=== PATIENT | female | born 1990 | race African-American/Black ===

== ENCOUNTER 2022-05-28 08:39 | Day surgery (SDC) | payer OTHER ==
[2022-05-26 14:41] VITALS: BMI 32.3
[2022-05-28] MEDS ORDERED: ROPIVACAINE HCL 0.5% 30ML VIAL ONE (10:19)
[2022-05-28] MEDS ORDERED: MIDAZOLAM HCL 2 MG/2 ML SINGLE DOSE VIAL ONE (10:19)
[2022-05-28] MEDS ORDERED: DEXAMETHASONE SOD PHOSPHATE 10 MG/1 ML VIAL ONE (10:19)
[2022-05-28] MEDS ORDERED: SODIUM CHLORIDE 0.9% P/F 10 ML VIAL IJ ONE (10:20)
[2022-05-28] MEDS ORDERED: PROPOFOL 40 ML ONE ×2 (10:34→13:12)
[2022-05-28] MEDS ORDERED: SUCCINYLCHOLINE CHLORIDE 200 MG/10 ML SYRINGE ONE (10:34)
[2022-05-28] MEDS ORDERED: LIDOCAINE HCL/PF 2% SDV 5ML VIAL ONE (10:37)
[2022-05-28] MEDS ORDERED: LIDOCAINE HCL 2% JELLY 11 ML TP ONE (10:37)
[2022-05-28] MEDS ORDERED: HYDROmorphone HCL/PF 1 MG/ML VIAL ONE (10:46)
[2022-05-28] MEDS ORDERED: TRANEXAMIC ACID 1000 MG/10 ML VIAL ONE (11:06)
[2022-05-28] MEDS ORDERED: ACETAMINOPHEN 325 MG TABLET (FP) PO PRN (13:46)
[2022-05-28] MEDS ORDERED: oxyCODONE HCL 5 MG TABLET PO PRN ×2 (13:46)
[2022-05-28] MEDS ORDERED: PROMETHAZINE HCL 25 MG/1 ML VIAL IVPUSH PRN (13:46)
[2022-05-28] MEDS ORDERED: ONDANSETRON 4 MG/2 ML VIAL IVPUSH PRN (13:46)
[2022-05-28 14:55] VITALS: BP 130/86; PULSE 82; RESP 19; TEMP 98
== END 2022-05-28 16:25 | disposition home or self-care (01) ==
LOC: FASU 08:39
PROVIDERS: ATTEND Orthopaedic Surgery Sports Medicine
PROC: 0QSH04Z Reposition Left Tibia with Internal Fixation Device, Open Approach (ICD-10-PCS; principal; 2022-05-28 11:09)
DX: S82.842A Displaced bimalleolar fracture of left lower leg, initial encounter for closed fracture (principal); X58.XXXA Exposure to other specified factors, initial encounter; Y92.9 Unspecified place or not applicable; Y93.9 Activity, unspecified
CPT/HCPCS: 27814; C1713; 73610-TC-LT-FY; 73630-TC-LT; 84703; 94760; J1100